=== PATIENT | female | born 1975 | race Caucasian/White ===

== ENCOUNTER → 2017-01-22 | Outpatient (CLI) | payer OTHER ==
--- NOTE | 2017-01-22 11:01 | DI ---
VENOUS DOPPLER ULTRASOUND OF THE RIGHT LOWER EXTREMITY, 01/22/2017 9:39 AM: Clinical History: Right calf pain. Previous Exam: None. Technique: 2D real-time imaging is supplemented with color Doppler ultrasound. Compression and augmen tation maneuvers were performed. The deep venous system from the groin to the popliteal fossa is norm al. The greater saphenous vein is normal. There is edema in the subcutaneous fat in the lower leg. Reading: Normal venous Doppler ultrasound of the right lower extremity.
== END ==
LOC: US 09:35
PROVIDERS: ATTEND Nurse Practitioner Family
DX: M79.661 Pain in right lower leg (principal); L03.115 Cellulitis of right lower limb
CPT/HCPCS: 93971

== ENCOUNTER → 2017-04-19 | Outpatient (CLI) | payer OTHER ==
--- NOTE | 2017-04-19 15:11 | DI ---
CT ABDOMEN SCAN WITH IV CONTRAST, 04/19/2017 1:54 PM : Clinical History: Right lower quadrant pain with diarrhea. Previous Exam: None at this facility. Scans are performed from the lower lung bases through the liver and kidneys with IV contrast. 95 ml o f Isovue 300 was injected IV. Water was used for rectal contrast. The lung bases are clear. The liver is normal. The gallbladder is grossly normal. There is no abnorma lity of the spleen, pancreas, and adrenal glands. Both kidneys are normal in size, shape, position an d contour. There is no hydronephrosis or hydroureter. No renal or ureteral calculi are present. There are no abnormal retrocrural or periaortic nodes. No ascites is present. READING: Normal CT abdomen scan. CT PELVIS SCAN WITH IV CONTRAST, 04/19/2017 1:54 PM: Clinical History: See above. Previous Exam: None at this facility. Scans are performed from just superior to the umbilicus to the symphysis pubis with IV contrast. This is the same bolus of contrast used for the CT scans of the abdomen. Scans through the lower abdomen and pelvis show no masses or abnormal fluid collections. There is no adenopathy. The appendix is normal. The small bowel, terminal ileum, and ileocecal valve are normal. The colon is normal and there is no evidence of mucosal thickening or abnormal enhancement of the bow el wall to indicate colitis. There is a small umbilical hernia through which only mesenteric fat has herniated. There is an IUD in the uterus. The uterus and both ovaries are normal. READING: Normal CT scan of the pelvis.
== END ==
LOC: CT 13:40
PROVIDERS: ATTEND Nurse Practitioner Family
DX: R10.31 Right lower quadrant pain (principal); R19.7 Diarrhea, unspecified; R63.4 Abnormal weight loss; F17.200 Nicotine dependence, unspecified, uncomplicated
CPT/HCPCS: 74177

== ENCOUNTER → 2017-04-19 | Outpatient (CLI) | payer OTHER ==
[2017-04-19 12:55] LABS: BILIRUBIN,URINE SMALL (NEG); CLARITY,URINE CLEAR (CLEAR); COLOR,URINE YELLOW; GLUCOSE, URINE (UA) NEGATIVE (NEG); NITRATE,URINE NEGATIVE (NEG); OCCULT BLOOD,URINE Trace-intact (NEG); PROTEIN,URINE 30 mg/dl (NEG); UROBILINOGEN,URINE 0.2 EU/dL (0.2)
[2017-04-19 12:57] LABS: MEAN PLATELET VOLUME 8.9 FL (7.4-12.2)
[2017-04-19 12:58] LABS: BLOOD UREA NITROGEN 11 mg/dL (7-22); BUN/CREATININE RATIO 13.75 (6-20); CALCIUM 9.4 mg/dL (8.7-10.7); EST GLOMERULAR FILTRATION > 60 (>60 ml/min/1.73m(2)); LIPASE 47 IU/L (23-300); SERUM ALBUMIN 4.5 g/dL (3.5-4.8)
[2017-04-19 13:00] LABS: BASOPHILS # (AUTO) 0.12 10*3/UL; BASOPHILS % (AUTO) 1.1 % (0-1); EOSINOPHILS # (AUTO) 0.36 10*3/UL; EOSINOPHILS % (AUTO) 3.3 % (0-8); HEMATOCRIT 45.6 % (37.0-47.0); HEMOGLOBIN 15.7 g/dL (12.0-16.0); LYMPHOCYTES # (AUTO) 3.97 10*3/uL; MEAN CORPUSCULAR HEMOGLOBIN 29.3 PG (27-31); MEAN CORPUSCULAR HGB CONC 34.4 g/dL (33-37); MEAN CORPUSCULAR VOLUME 85.1 FL (81-99); MONOCYTES # (AUTO) 0.71 10*3/UL (0.3-0.8); MONOCYTES % (AUTO) 6.5 % (5-15); NEUTROPHILS # (AUTO) 5.79 10*3/UL; NEUTROPHILS % (AUTO) 52.6 % (50-80); RBC,URINE 0-1 /hpf; RED BLOOD COUNT 5.36 10^6/uL (4.20-5.40); SQUAMOUS EPITHELIAL CELL,UR MODERATE; URINE SAMPLE TYPE VOID
[2017-04-19 13:01] LABS: PLATELET MORPHOLOGY COMMENT NORMAL MORPHOLOGY (NORM); RBC MORPHOLOGY COMMENT NORMAL MORPHOLOGY (NORM); WBC MORPHOLOGY COMMENT NORMAL MORPHOLOGY (NORM)
== END ==
LOC: MOB LAB 12:00
PROVIDERS: ATTEND Nurse Practitioner Family
DX: R10.31 Right lower quadrant pain (principal); R11.0 Nausea; R63.4 Abnormal weight loss
CPT/HCPCS: 36415; 80053; 81001; 82150; 83690; 85025

== ENCOUNTER 2017-05-02 09:00 | Day surgery (SDC) | payer OTHER ==
[~2017-05-02 09:00] MED LIST: LIDOCAINE 2% VISCOUS(20 MG/1 ML) - 15 ML UD CUP PO ONE; LIDOCAINE HCL/PF 2% (20 MG/ML) - 5 ML SYRINGE ONE; LIDOCAINE W/ SODIUM BICARB 0.5 ML SYR ONE; Lactated Ringers 1,000 ML PRIMARY IV ONE; MIDAZOLAM 5 MG/1 ML ONE; fentaNYL Inj 100 MCG/2 ML VIAL ONE
--- NOTE | 2017-05-02 10:32 | GEN.OPNOTE ---
EGD Operative Note Surgery Date: 05/02/17 Preoperative Diagnosis: Epigastric abdominal pain Postoperative Diagnosis: Epigastric abdominal pain Procedure: Esophagogastroduodenoscopy with biopsy Surgeon: Vincenzo Garza MD Anesthesia Provider: Daquan Davila CRNA Anesthesia Type: MAC Indications: Epigastric abdominal pain Findings: Esophagus: There was video EGD scope inserted posterior pharynx. Into the esophagus. Patient esophagus appeared to be normal GE Junction : GE junction proximal be 38 cm from incisors Fundus : Scope retroflexed on itself revealing normal pathology Body : Body the stomach was within normal limits Prepyloric : Patient had a hemorrhagic gastritis seen in the prepyloric area. Biopsy taken and CLOtest taken Small Intestine : In the first portion of the duodenum patient had what appeared to be an ulcer A lubricated flexible upper endoscope was inserted and passed through the esophagus and stomach into the duodenum.
[2017-05-02 10:58] VITALS: TEMP 97.3
[2017-05-02 11:17] VITALS: RESP 15
== END 2017-05-02 10:55 | disposition home or self-care (01) ==
LOC: SDSC 09:00
PROVIDERS: ATTEND Surgery
DX: K21.9 Gastro-esophageal reflux disease without esophagitis (principal)
CPT/HCPCS: 43239; 87339; J2704; J3010; J2001; J2250; J7120